=== PATIENT | female | born 1950 | race Caucasian/White ===

== ENCOUNTER 2017-05-17 05:38 | Emergency (ER) | payer BC ==
[~2017-05-17] VITALS: Ht 157.5 cm; Wt 77.1 kg
[~2017-05-17 05:38] MED LIST: CELEXA20 MG PO; LOTREL 5 MG-201 CAP PO; PERCOCET 5/3251 EACH PO; ZOFRAN4 MG PO
[2017-05-17 05:52] LABS: URINE BILIRUBIN - DIPSTICK NEGATIVE (NEG); URINE BLOOD 2+ (NEG)
[2017-05-17] MEDS ORDERED: OMEPRAZOLE20 MG PO (05:57)
[2017-05-17] MEDS ORDERED: ESTRACE 2MG. TAB2 MG PO (05:58)
--- NOTE | 2017-05-17 06:10 | Emergency Room Report ---
History of Present Illness Time Seen by MD Solano Presenting Problem in Triage Pt arrived:Walked Presenting Problem:awoke this morning at 0130 with right sided back pain, nausea and vomiting Onset of symptoms date/time:05/17/1711/28/129 or onset unknown for: Treatment Prior to Arrival: [employer] Provided by: Sepsis Risk Assessment: Temp: 98.0 B/P: 160/42 MAP: 81 Pulse: 70 Resp: 14 Recent fever? N Clinical Suspician of Infection? N Mental Status: 1 - Regular (Normal Baseline) Sepsis Risk:Low Sepsis Risk Have you (or family members/close friends) recently traveled outside the [place]? N If Yes, where/when: Have you had exposure to infectious disease within the past month? N TB? Other? Specify: Source patient, RN notes reviewed, family, old records Exam Limitations no limitations Comment pt with rt falnk pain with hx of kidney stones with procr=edure this summer Cardiac Chest Pain Chest pain indicative of cardiac No Timing/Duration this morning Severity moderate ALLERGIES Coded Allergies: No Known Allergies (02/07/17) Home Medications Reported Medications Oxycodone 5MG/[id number] (Oxycodone-Acetaminophen 5-325) 1 TAB PO Q4HP- Q6HP ONDANSETRON HCL (Zofran 4MG Tab) 4 MG PO V2CG-R6AZ Amlodipine Besylate/Benazepr (Lotrel 5 Mg-20 Mg) 1 CAP PO DAILY CITALOPRAM HYDROBROMIDE (Citalopram HBr) 20 MG PO DAILY Omeprazole (Omeprazole 20MG) 20 MG PO DAILY #30 Estradiol (Estrace 2MG. Tablet) 2 MG PO DAILY #30 History Medical History General Angina: No MO: No Hypertension? Yes Hyperlipidemia? No CHF? No COPD? No Asthma? No Hernia? No CVA? No Seizures? No Diabetes? No UTI? No Stones? Yes GB Disease: No Hepatitis? No Cataracts? No Glaucoma? No MRSA? No TB? No Cancer? No Immunization Hx DT/Tetanus UNKNOWN Flu NEVER Pneumonia NEVER Surgical Hx Previous Surgery?Y HYSTERECTOMY Family History Family Hx Diabetes Yes CAD No Hypertension Yes Hyperlipidemia Yes Cancer No TB No Social History Smoking Hx Smoker: Former Smoker Tobacco: Yes Type Cigarettes Alcohol Alcohol: No Drugs none Review of Systems All Other Systems Reviewed and Negative Constitutional denies fever Eyes denies drainage ENT denies: ear discharge, epistaxis, throat pain. Respiratory denies cough, denies shortness of breath, denies wheezing Cardiovascular denies chest pain, denies syncope Gastrointestinal see HPI, nausea, denies vomiting Genitourinary see HPI. denies: dysuria, frequency, hesitancy, hematuria. Musculoskeletal see HPI, denies back pain, denies joint pain, denies joint swelling, denies neck pain, other Skin denies rash Psychiatric/Neurological denies seizure Physical Exam Vital Signs Vital Signs Date Time Temp Pulse Resp B/P Pulse O2 O2 Flow FiO2 Ox Delivery Rate 05/17 0740 60 16 132/71 96 05/17 0645 97.4 71 16 141/92 96 05/17 0606 14 05/17 0542 98.0 70 14 160/42 95 - WBC >12,000 or <4,000 or 10% bands? 2 or more SIRS Criteria Met? B/P:132/71 MAP:81 Creatinine >2.0? UA output<0.5ml/kg/hr for 2 hrs? Platelet count >100,000? Lactate >2.0mmol/1? INR >1.2 or PTT > than 60 sec? Evidence of Organ Dysfunction? Provider documented clinical suspician of infection? N Sepsis Criteria Count: 0 Sepsis Risk: Low Sepsis Risk General Appearance no apparent distress Eye Exam - bilateral eye PERRL, bilateral eye EOMI Ear, Nose, Throat normal ENT inspection Neck supple Respiratory Status No: respiratory distress. 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 No Results/Orders Laboratory Tests 05/17/17 0605: Sodium 139, Potassium 3.7, Chloride 106, Carbon Dioxide 27, BUN 21 H, Creatinine 1.1 H, Estimated Creat Clear 63, Estimated GFR (MDRD) 50 L, Glucose 142 H, Calcium 9.8, Total Bilirubin 0.7, AST 12 L, ALT 32, Alkaline Phosphatase 74, Total Protein 7.8, Albumin 3.9, Globulin 3.9 H, Albumin/ Globulin Ratio 1.0 L, WBC 15.6 H, RBC 5.34, Hgb 16.5 H, Hct 52.2 H, MCV 97.8 , RDW 13.4, Plt Count 245, Gran % 87.9 H, Gran # 13.7 H, Total Counted 100, Lymphocytes % 7.4 L, Monocytes % 3.6, Eosinophils % 0.7, Basophils % 0.4, Neutrophils 87 H, Band Neutrophils 2, Lymphocytes (Manual) 7 L, Lymphocytes # 1.2, Monocytes (Manual) 3, Monocytes # 0.6, Eosinophils # 0.1, Eosinophils # ( Manual) 1, Basophils # 0.1, Platelet Estimate NORMAL, PUBS MCHC 31.6 L, MCH 30.9 05/17/17 0550: Urine Color YELLOW, Urine Appearance CLEAR, Urine pH 6.5, Ur Specific [place] 1.020, Urine Protein NEGATIVE, Urine Ketones NEGATIVE, Urine Blood 2+ H, Urine Nitrate NEGATIVE, Urine Bilirubin NEGATIVE, Urine Urobilinogen 0.2, Ur Leukocyte Esterase 1+ H, Urine RBC 10-20, Urine WBC 3-5, Ur Squamous Epith Cells 3-5, Urine Bacteria 1+, Urine Glucose NEGATIVE Current Medication Orders Sig/Mickey Start time Last Medication Dose Route Stop Time Status Admin Ketorolac 0 .STK-MED ONE 05/17 604 DC Tromethamine .ROUTE Sodium Chloride 1,000 ML .STK-MED ONE 05/17 604 DC IV Ketorolac 30 MG ONCE ONE 05/17 600 DC 05/17 Tromethamine IV 05/17 601 06 Sodium Chloride 10 ML PRN PRN 05/17 600 AC IV 05/18 546 Orders Procedure Date/time Status DIET-NOTHING BY MOUTH 05/17 B Active CULTURE, URINE 05/17 640 Active DIFFERENTIAL-WBC 05/[address] ABD & PELVIS W/O CONTRAST 05/[address] SCAN REQ 05/17 546 Complete IV SALINE LOCK 05/17 546 Active URINALYSIS/COMPLETE 05/17 546 Complete COMPLETE METABOLIC PANEL 05/17 546 Complete CBC WITH AUTO DIFF 05/17 546 Complete XRAY/CT/US XRAY/CT/US CT abdomen, pelvis CT interpretation by discussed w/radiologist Time results known: 075 CT Results abnormal (see report) Departure Departure Time of Disposition 0755 Disposition DC Home or Self Care(routine) Clinical Impression Primary Impression: Renal colic on right side Secondary Impressions: Renal insufficiency Condition STABLE Referrals Sid Zendejas MD (Family) Patient Instructions DI for Kidney Stones Additional Instructions need to see your urologist jose ramon Discharge Counseling Counseled pt/family regarding diagnosis, test results, follow up needs ED Critical Care Critical Care No at 0756
[2017-05-17 06:12] LABS: LYMPH # 1.2 K/mm3 (0.7-4.5); LYMPH % 7.4 % (10-50.0)
[2017-05-17 06:14] LABS: HEMOGLOBIN 16.5 g/dL (12.2-16.2)
[2017-05-17 06:37] LABS: NEUTROPHILS 87 % (42-76)
[2017-05-17] MEDS ORDERED: TORADOL10 MG PO (08:13)
[2017-05-17 08:18] VITALS: BP 144/70
--- NOTE | 2017-05-17 09:36 | RADIOLOGY REPORT PS360 ---
CT ABD PELVIS W/O CONTRAST HISTORY: FLANK PAIN laser surgery lithotripsy in February for stones. Flank pain Patient Age: 66 years: Female Ordering Physician: Marline Quiñones MD TECHNIQUE: Helical CT scanning performed through the abdomen pelvis with no oral or IV contrast COMPARISON : Previous CT abdomen 02/07 with contrast FINDINGS RIGHT KIDNEY :Prominent obstructive uropathy on the right. This due to a prominent nearly 12 mm mm x 7.5 mm calculus at right at UPJ. Resulting mild/moderate hydronephrosis. Most striking is the prominent stranding about the right kidney most likely reflecting high-grade obstructive uropathy with prominent pelvicalyceal backflow. However if recent lithotrips -could yield this appearance.. Cannot exclude associated pyelonephritis with this appearance either. Correlation required clinically. There is also a 5.7 mm calculus nonobstructive lower pole calyx right kidney Scattered other tiny less than 2 mm nonobstructive calculi elsewhere throughout right kidney The mid and distal right ureter appears satisfactory.. Urinary bladder with no calculi. Left KIDNEY. 2 tiny nonobstructive calculi upper pole calyx on measuring less than 3 mm each. Generous lower pole collecting system similar to 2016. No obstruction here possible parapelvic cyst on coronal image 46. No retroperitoneal adenopathy. Colonic diverticulosis. Most extensive in sigmoid colon. No diverticulitis. . Moderate to generous stool throughout the right colon. Terminal ileum appears normal. The appendix I believe is normal. It is long plump on some images, generous but normal caliber of measuring up to 6.5 mm but no associated inflammation. Lung bases clear. Heart normal size. . abdomen and pelvis:. Lack of oral and IV contrast decreases sensitivity Liver, spleen, pancreas, gallbladder unremarkable. No calcified stones in gallbladder. No intrahepatic no biliary ductal dilatation... The stomach small bowel unremarkable. Enlarged left adrenal. With low-density left adrenal nodule measuring up to 14 mm. Compatible with a benign nonfunctioning adenoma. It appears stable in size since January Osseous structures. No osseous lesions. Incidental note Grade 1 anterolisthesis of L4 on S1 due to the prominent degenerative facet changes here. No pars defect identified. Resulting spinal stenosis at this level IMPRESSION 1.. Obstructive uropathy on the right due to a prominent 12 mm x 7.5 mm calculus at right UPJ. Moderate right hydronephrosis with Associated Prominent perinephric stranding about fat surrounding right kidney-most likely reflecting high-grade obstructive uropathy. (Recent Lithotripsy could yield similar appearance; I would anticipate any changes from February lithotripsy would have resulted bilateral.. Also less likely but Could not exclude pyelonephritis with this appearance is well. Clinical correlation required) 2. Smaller nonobstructive calculi scattered elsewhere Throughout Right Kidney. 3. Left kidney. Only tiny punctate nonobstructive calculi upper pole noted Other observations: 4. Colonic diverticulosis most extensive in the sigmoid colon. No diverticulitis. . 5. No evidence of appendicitis. Moderate stool throughout colon. 6. Grade 1 degenerative anterolisthesis of L4 on 5 instantly noted
--- OUTSIDE RECORDS SUMMARY | 2017-05-25 13:05 | External Medical Summary Rpt | CCD ---
Author Author [employer] Organization [employer] Address Unknown Phone Unavailable Purpose Continuity of Care Document - through 2016
--- OUTSIDE RECORDS SUMMARY | 2017-05-25 13:05 | External Medical Summary Rpt | CCD ---
Author Author , ALVINO Organization [employer] Address Unknown Phone [email or web address] Purpose Continuity of Care Document - 05-17-2017 through 2016 Results Labs Lab Lab Date Result Refere Interp Status Commen Order Detail nces retati t Range on Differential panel, method unspecified - (05-17-2017 06:05) LYMPH 7 % 10% - Low complet 017 50% ed 06:05 Platele NORMAL complet ts 017 ed [Presen 06:05 ce] in Blood by Light microsc opy Urinalysis dipstick W Reflex Microscopic panel in Urine (05-17-2017 05:50) Bacteri 1+ O complet a 017 ed [Presen 05:50 ce] in Urine sedimen t by Light microsc opy Erythro 10-20 0 complet cytes 017 ed [Presen 05:50 ce] in Urine sedimen t by Light microsc opy Epithel 3-5 0#/hp complet ial 017 f - ed cells.s 05:50 5#/hp quamous f [Presen ce] in Urine sedimen t by Microsc opy high power field Leukocy 3-5 O complet collin 017 wbc/hpf ed [#/volu 05:50 me] in Urine Urinalysis dipstick W Reflex Microscopic panel in Urine (05-17-2017 05:50) Appeara CLEAR CLEAR complet nce of 017 ed Urine 05:50 Bilirub NEGATIV NEG complet in 017 E ed [Presen 05:50 ce] in Urine by Test strip Erythro 2+ NEG Abnorma complet cytes 017 l ed [Presen 05:50 ce] in Urine Color YELLOW YELLOW complet of 017 ed Urine 05:50 Ketones NEGATIV NEG complet 017 E ed [Presen 05:50 ce] in Urine by Automat ed test strip Mucus 1+ NEG Abnorma complet [Presen 017 l ed ce] in 05:50 Urine sedimen t by Light microsc opy Nitrite NEGATIV NEG complet 017 E ed [Presen 05:50 ce] in Urine by Test strip Urobili 0.2 NEG complet nogen 017 ed [Presen 05:50 ce] in Urine by Test strip
--- OUTSIDE RECORDS SUMMARY | 2017-05-25 13:05 | External Medical Summary Rpt | CCD ---
Demographics Preferred Language Serbian Marital Status Unknown Episcopalian Affiliation Unknown Race Unknown Ethnic Group Unknown Author Author , ALVINO DE OLIVEIRA Address Unknown Phone [email or web address] Immunization Name Date Rout CVX Reac Dose Comm Prov Is Faci e tion ent ider Refu lity Give sed n Td 01-0 9 999 Hist H158 No H158 (erika 6-20 oric lt), 05 al Info adso rmat rbed ion - Sour ce Unsp ecif ied
--- OUTSIDE RECORDS SUMMARY | 2017-05-25 13:05 | External Medical Summary Rpt ---
Author Author [employer], [employer] Organization [employer] Address Unknown Phone Unavailable Results CBC W Auto Differential panel in Blood Observa Value Referen Units Interpr Notes Date tion ce etation Range Basophils 0 - 0.2 K/MM3 Normal No May 4 informati 2017 6:05 [#/volume on in AM ] in source Blood by data Automated count Basophils 0.1 - 2.0 % Normal No May 17 /100 informati 2017 6:05 leukocyte on in AM s in source Blood by data Automated count Eosinophi 0.0 - 0.4 K/mm3 Normal No May 17 ls informati 2017 6:05 [#/volume on in AM ] in source Blood by data Automated count Eosinophi 0.1 - % Normal No May 17 ls/100 12.0 informati 2017 6:05 leukocyte on in AM s in source Blood by data Automated count Granulocy 1.8 - 7.8 K/mm3 High No May 17 collin informati 2017 6:05 [#/volume on in AM ] in source Blood by data Automated count Granulocy 37.0 - % High No May 17 collin/100 80.0 informati 2017 6:05 leukocyte on in AM s in source Blood by data Automated count Hematocri 37.0 - % High No May 17 t [Volume 47.0 informati 2017 6:05 on in AM Fraction] source of Blood data Hemoglobi 12.2 - g/dL High No May 4 n 16.2 informati 2017 6:05 [Mass/vol on in AM ume] in source Blood data Lymphocyt 0.7 - 4.5 K/mm3 Normal No May 17 es informati 2017 6:05 [#/volume on in AM ] in source Unspecifi data ed specimen by Automated count Lymphocyt 10 - 50.0 % Low No May 17 es informati 2017 6:05 [#/volume on in AM ] in source Unspecifi data ed specimen by Automated count Erythrocy 27 - 31.2 pg Normal No May 4 te mean informati 2017 6:05 corpuscul on in AM ar source hemoglobi data n [Entitic mass] Erythrocy 31.8 - g/dl Low No May 4 te mean 35.4 informati 2017 6:05 corpuscul on in AM ar source hemoglobi data n concentra tion [Mass/vol ume] by Automated count Erythrocy 82.2 - fl Normal No May 4 te mean 97.8 informati 2017 6:05 corpuscul on in AM ar volume source [Entitic data volume] by Automated count Monocytes 0.1 - 1.0 K/mm3 Normal No May 4 informati 2016 6:05 [#/volume on in AM ] in source Blood by data Automated count Monocytes 1.7 - 9.3 % Normal No May 17 /100 informati 2017 6:05 leukocyte on in AM s in source Blood by data Automated count Platelets 142 - 424 K/mm3 Normal No May 4 informati 2016 6:05 [#/volume on in AM ] in source Blood data Erythrocy 4.2 - 5.4 M/mm3 Normal No May 4 collin informati 2016 6:05 [#/volume on in AM ] in source Amniotic data fluid Erythrocy 11.5 - % Normal No May 17 te 17.5 informati 2017 6:05 distribut on in AM ion width source [Entitic data volume] by Automated count Leukocyte 4.8 - K/MM3 High No May 4 s 10.8 informati 2016 6:05 [#/volume on in AM ] in source Blood data Differential panel, method unspecified - Observa Value Referen Units Interpr Notes Date tion ce etation Range Neutrophi 0 - 8 % Normal No May 4 ls.band informati 2017 6:05 form/100 on in AM leukocyte source s in data Blood by Automated count Eosinophi 0 - 3 % Normal No May 4 ls/100 informati 2017 6:05 leukocyte on in AM s in source Blood by data Manual count LYMPH 7 10 - 50 % Low No May 4 informa 2017 tion in 6:05 AM source data Monocytes 2 - 9 % Normal No May 4 /100 informati 2017 6:05 leukocyte on in AM s in source Blood by data Automated count Platele NORMAL No No No No May 4 ts informa informa informa informa 2016 [Presen tion in tion in tion in tion in 6:05 AM ce] in source source source source Blood data data data data by Light microsc opy Neutrophi 42 - 76 % High No Oct 4 ls informati 2017 6:05 [#/volume on in AM ] in source Blood by data Automated count Cells No #CELLS No No Oct 4 Counted informati informati informati 2017 6:05 Total [#] on in on in on in AM in Blood source source source data data data Comprehensive metabolic 2000 panel in Serum or Plasma Observa Value Referen Units Interpr Notes Date tion ce etation Range Albumin/G 1.1 - 1.8 No Low No Oct 4 lobulin informati informati 2017 6:05 [Mass on in on in AM ratio] in source source Serum or data data Plasma Albumin 3.4 - 5.0 gm/dL Normal No Oct 4 [Mass/vol informati 2017 6:05 ume] in on in AM Serum or source Plasma data Alkaline 46 - 116 U/L Normal No Oct 4 phosphata informati 2017 6:05 se on in AM [Enzymati source c data activity/ volume] in Serum or Plasma Bilirubin 0.2 - 1.0 mg/dL Normal No Oct 4 .total informati 2017 6:05 [Mass/vol on in AM ume] in source Serum or data Plasma Urea 7 - 18 mg/dL High No Oct 4 nitrogen informati 2017 6:05 [Mass/vol on in AM ume] in source Serum or data Plasma Calcium 8.5 - mg/dL Normal No Oct 4 [Mass/vol 10.1 informati 2017 6:05 ume] in on in AM Serum or source Plasma data Chloride 98 - 107 mmoL/L Normal No Oct 4 [Moles/vo informati 2017 6:05 lume] in on in AM Serum or source Plasma data Carbon 21.0 - mmoL/L Normal No Oct 4 dioxide, 32.0 informati 2017 6:05 total on in AM [Moles/vo source lume] in data Serum or Plasma Creatinin 0.55 - mg/dL High No Oct 4 e 1.02 informati 2017 6:05 [Mass/vol on in AM ume] in source Serum or data Plasma Creatinin 50 - 200 ML/MIN Normal No Oct 4 e renal informati 2017 6:05 clearance on in AM source predicted data by Cockcroft -Gault formula Estimated 59- ML/MIN Low REFERENCE Oct 4 RANGE: 2017 6:05 glomerula >60 AM r ML/MIN/1. filtratio 73 SQUARE n rate METERSIf (GF this patient is -A merican, then multiply theresult by 1.210. Globulin 1.3 - 3.2 gm/dL High No May 4 [Mass/vol informati 2016 6:05 ume] in on in AM Serum source data Glucose 74 - 106 mg/dL High No May 17 [Mass/vol informati 2016 6:05 ume] in on in AM Serum or source Plasma data Potassium 3.5 - 5.1 mmoL/L Normal No May 17 inform2016 6:05 [Moles/vo on in AM lume] in source Serum or data Plasma Sodium 136 - 145 mmoL/L Normal No May 17 [Moles/vo informati 2016 6:05 lume] in on in AM Serum or source Plasma data Aspartate 15 - 37 U/L Low No May 17 informati 2016 6:05 aminotran on in AM sferase source [Enzymati data c activity/ volume] in Serum or Plasma Alanine 12 - 78 U/L Normal No May 17 aminotran informati 2016 6:05 sferase on in AM [Enzymati source c data activity/ volume] in Serum or Plasma Protein 6.4 - 8.2 gm/dL Normal No May 17 [Mass/vol informati 2016 6:05 ume] in on in AM Serum or source Plasma data Urinalysis dipstick W Reflex Microscopic panel in Urine Observa Value Referen Units Interpr Notes Date tion ce etation Range Appeara CLEAR CLEAR No No No May 17 nce of informa informa informa 2016 Urine tion in tion in tion in 5:50 AM source source source data data data Bacteri 1+ O No No No May 17 a informa informa informa 2016 [Presen tion in tion in tion in 5:50 AM ce] in source source source Urine data data data sedimen t by Light microsc opy Bilirub NEGATIV NEG No No No May 17 in E informa informa informa 2016 [Presen tion in tion in tion in 5:50 AM ce] in source source source Urine data data data by Test strip Erythro 2+ NEG No Abnorma No May 17 cytes informa l informa 2016 [Presen tion in tion in 5:50 AM ce] in source source Urine data data Color YELLOW YELLOW No No No May 17 of informa informa informa 2016 Urine tion in tion in tion in 5:50 AM source source source data data data Glucose NEG No No No May 17 [Mass/vol informati informati informati 2016 5:50 ume] in on in on in on in AM Urine by source source source Test data data data strip Ketones NEGATIV NEG mg/dL No No May 17 E informa informa 2016 [Presen tion in tion in 5:50 AM ce] in source source Urine data data by Automat ed test strip Mucus 1+ NEG No Abnorma No May 17 [Presen informa l informa 2016 ce] in tion in tion in 5:50 AM Urine source source sedimen data data t by Light microsc opy Nitrite NEGATIV NEG No No No May 17 E informa informa informa 2016 [Presen tion in tion in tion in 5:50 AM ce] in source source source Urine data data data by Test strip pH of 5.0 - 8.5 No Normal No May 17 Urine informati informati 2016 5:50 on in on in AM source source data data Protein NEG mg/dL No No May 17 [Mass/vol informati informati 2016 5:50 ume] in on in on in AM Urine by source source Automated data data test strip Erythro 10-20 0 rbc/hpf No No May 17 cytes informa informa 2016 [Presen tion in tion in 5:50 AM ce] in source source Urine data data sedimen t by Light microsc opy Specific 1.005 - No Normal No May 17 gravity 1.030 informati informati 2017 5:50 of Urine on in on in AM source source data data Epithel 3-5 0 - 5 #/hpf No No May 17 ial informa informa 2017 cells.s tion in tion in 5:50 AM quamous source source data data [Presen ce] in Urine sedimen t by Microsc opy high power field Urobili 0.2 NEG E.U./dL No No May 17 nogen informa informa 2016 [Presen tion in tion in 5:50 AM ce] in source source Urine data data by Test strip Leukocy [3 O wbc/hpf No No May 17 collin wbc/hpf informa informa 2016 [#/volu ; 5 tion in tion in 5:50 AM me] in wbc/hpf source source Urine ] data data Urinalysis dipstick W Reflex Microscopic panel in Urine Observa Value Referen Units Interpr Notes Date tion ce etation Range Appeara CLEAR CLEAR No No No May 17 nce of informa informa informa 2016 Urine tion in tion in tion in 5:50 AM source source source data data data Bilirub NEGATIV NEG No No No May 17 in E informa informa informa 2016 [Presen tion in tion in tion in 5:50 AM ce] in source source source Urine data data data by Test strip Erythro 2+ NEG No Abnorma No May 17 cytes informa l informa 2016 [Presen tion in tion in 5:50 AM ce] in source source Urine data data Color YELLOW YELLOW No No No May 17 of informa informa informa 2016 Urine tion in tion in tion in 5:50 AM source source source data data data Glucose NEG No No No May 17 [Mass/vol informati informati informati 2016 5:50 ume] in on in on in on in AM Urine by source source source Test data data data strip Ketones NEGATIV NEG mg/dL No No May 17 E informa informa 2016 [Presen tion in tion in 5:50 AM ce] in source source Urine data data by Automat ed test strip Mucus 1+ NEG No Abnorma No May 17 [Presen informa l informa 2016 ce] in tion in tion in 5:50 AM Urine source source sedimen data data t by Light microsc opy Nitrite NEGATIV NEG No No No May 17 E informa informa informa 2016 [Presen tion in tion in tion in 5:50 AM ce] in source source source Urine data data data by Test strip pH of 5.0 - 8.5 No Normal No May 17 Urine informati informati 2016 5:50 on in on in AM source source data data Protein NEG mg/dL No No May 17 [Mass/vol informati informati 2016 5:50 ume] in on in on in AM Urine by source source Automated data data test strip Specific 1.005 - No Normal No May 17 gravity 1.030 informati informati 2017 5:50 of Urine on in on in AM source source data data Urobili 0.2 NEG E.U./dL No No May 17 nogen informa informa 2017 [Presen tion in tion in 5:50 AM ce] in source source Urine data data by Test strip
--- OUTSIDE RECORDS SUMMARY | 2017-05-25 13:05 | External Medical Summary Rpt | CCD ---
Demographics Preferred Language Upper Sorbian Marital Status Unknown Orthodox Affiliation Unknown Race Unknown Ethnic Group Unknown Author Author , ALVINO DE OLIVEIRA Address Unknown Phone [email or web address] Immunization Name Date Rout CVX Reac Dose Comm Prov Is Faci e tion ent ider Refu lity Give sed n Td 01-0 9 999 Hist H158 No H158 (erika 6-20 oric lt), 05 al Info adso rmat rbed ion - Sour ce Unsp ecif ied
--- OUTSIDE RECORDS SUMMARY | 2017-05-25 13:05 | External Medical Summary Rpt ---
Author Author [facility] Organization [facility] Address Unknown Phone Unavailable Care Team Providers Care Assistant Manager Trainee Name Role Phone YOHANA, (REF) PCP [phone] Encounter JOSE SHELTON [id number] Date(s): 09/30/15 - 11/17/16 [facility] [address] [place] [address]- Discharge Disposition: OP Self Care or Home Attending Physician: MIGEL MATHEW MD Admitting Physician: MIGEL MATHEW MD Referring Physician: MIGEL MATHEW MD Reason for Visit ENCNTR SCREEN MAMMOGRAM FOR MALIGNANT NEOPLASM OF BREAST Vital Signs No data available for this section Problem List No data available for this section Allergies, Adverse Reactions, Alerts No data available for this section Medications No data available for this section Results No data available for this section Immunizations No data available for this section Procedures No data available for this section Social History No data available for this section Assessment and Plan No data available for this section Hospital Discharge Instructions No data available for this section
--- OUTSIDE RECORDS SUMMARY | 2017-05-25 13:05 | External Medical Summary Rpt | CCD ---
Author Author , [facility] Organization [facility] Address Unknown Phone [email or web address] Purpose Continuity of Care Document - 05-17-2017 [...]
--- OUTSIDE RECORDS SUMMARY | 2017-05-25 13:05 | External Medical Summary Rpt ---
Author Author [facility] Organization [facility] Address Unknown Phone Unavailable Care Team Providers Care Rat Trapper Name Role Phone YOHANA, (REF) PCP [phone] Encounter JOSE SHELTON [id number] Date(s): 09/30/15 - 11/17/16 [facility] [address] [place] [address]- Discharge Disposition: OP Self Care or Home [...]
== END 2017-05-17 08:18 | disposition home or self-care (01) ==
LOC: ER 05:38
PROVIDERS: Emergency Medicine
DX: N13.2 Hydronephrosis with renal and ureteral calculous obstruction (principal); N28.9 Disorder of kidney and ureter, unspecified; I10 Essential (primary) hypertension; Z87.891 Personal history of nicotine dependence